=== PATIENT | male | born 1995 | race Caucasian/White ===

== ENCOUNTER → 2018-08-20 | Outpatient (CLI) | payer OTHER, BC ==
[2018-08-22 07:12] LABS: HIV SCREEN 4TH GENERATION WRFX Non Reactive (Non Reactive)
== END | disposition home or self-care (01) ==
LOC: LAB SHORT 16:38 → LAB EV 16:38
PROVIDERS: Family Medicine
DX: Z20.9 Contact with and (suspected) exposure to unspecified communicable disease (principal)
CPT/HCPCS: 87389

== ENCOUNTER → 2018-11-06 | Outpatient (CLI) | payer OTHER, BC ==
[2018-11-07 12:07] LABS: HIV SCREEN 4TH GENERATION WRFX Non Reactive (Non Reactive)
== END ==
LOC: LAB SHORT 12:49 → LAB EV 12:49
PROVIDERS: General Practice
DX: Z20.9 Contact with and (suspected) exposure to unspecified communicable disease (principal)
CPT/HCPCS: 87389

== ENCOUNTER 2019-12-13 03:06 | Emergency (ER) | payer BC ==
[~2019-12-13] VITALS: Ht 185.4 cm; Wt 140.6 kg
[2019-12-13] MEDS ORDERED: CYCL10 (03:52)
[2019-12-13 05:16] LABS: BASOPHILS ABSOLUTE AUTO 0.04 K/mm3 (0.00-0.23); BASOPHILS PERCENT AUTO 0 % (0-2); EOSINOPHILS ABSOLUTE AUTO 0.08 K/mm3 (0.00-0.68); EOSINOPHILS PERCENT AUTO 1 % (0-6); Hematocrit 48.1 % (37.0-53.0); Hemoglobin 15.4 g/dL (13.5-17.5); IMMATURE GRAN PERCENT AUTO 1 % (0-1); LYMPHOCYTES ABSOLUTE AUTO 2.78 K/mm3 (0.84-5.20); LYMPHOCYTES PERCENT AUTO 27 % (21-46); MONOCYTES ABSOLUTE AUTO 0.55 K/mm3 (0.16-1.47); MONOCYTES PERCENT AUTO 5 % (4-13); Mean Corpuscular HGB 27.1 pg (26.0-34.0); Mean Corpuscular Volume 85 fL (80-100); NEUTROPHILS ABSOLUTE AUTO 6.91 K/mm3 (1.96-9.15); NEUTROPHILS PERCENT AUTO 66 % (41-73); Platelet Count 262 K/mm3 (150-400); RDW Coefficient Variation 12.8 % (11.7-14.2); Red Blood Cell Count 5.69 M/mm3 (4.30-5.90); White Blood Cell Count 10.46 K/mm3 (4.00-11.30)
[2019-12-13 05:17] LABS: Source, Urine Clean Catch
[2019-12-13 05:22] LABS: Appearance, Urine Clear (Clear); Bilirubin, Urine Neg (Neg); Blood, Urine 1+ (Neg); Color, Urine Yellow (P-Yellow); Glucose Qualitative, Urine Neg (Neg); Ketones, Urine Neg (Neg); Leukocyte Esterase, Urine Neg (Neg); Nitrite, Urine Neg (Neg); Protein, Urine Neg (Neg); Specific Gravity, Urine 1.025 (1.003-1.022); Urobilinogen, Urine NORM (Normal)
[2019-12-13 05:28] LABS: Alanine Aminotransfer (ALT/SGP 61 U/L (12-78); Albumin, Blood 3.8 g/dL (3.4-5.0); Alk Phos 56 U/L (50-136); Anion Gap 7 mmol/L (6-16); Aspartate Aminotrans (AST/SGOT 27 U/L (12-37); Bilirubin, Total 0.3 mg/dL (0.1-1.0); Blood Urea Nitrogen 12 mg/dL (8-24); Bun/Creatinine Ratio 11.5 (12.0-20.0); CO2, Blood 28 mmol/L (21-32); Calcium, Blood 8.9 mg/dL (8.5-10.1); Chloride, Blood 109 mmol/L (98-108); Creatinine, Blood 1.04 mg/dL (0.60-1.20); Globulin, Blood 3.8 g/dL (2.2-4.0); Glomerular Filtration Rate >60 (60-); Glucose, Blood 112 mg/dL (70-99); Sodium, Blood 144 mmol/L (136-145); Total Protein, Blood 7.6 g/dL (6.4-8.2)
[2019-12-13 05:30] LABS: Bacteria Not Seen /hpf; Mucus Light (0-Heavy); Red Blood Cells, Urine 0-2 /hpf (0-2); Squamous Epithelial Cells Not Seen /hpf (Few); White Blood Cells, Urine 0-2 /hpf (0-5)
[2019-12-13 05:31] LABS: Calcium Oxalate Crystals Rare /hpf
[2019-12-13] MEDS ORDERED: Flomax0.4 MG PO (06:33)
[2019-12-13] MEDS ORDERED: Norco 5-325 Ta1 EACH PO (06:33)
== END 2019-12-13 06:59 | disposition home or self-care (01) ==
LOC: ER 03:06
PROVIDERS: Emergency Medicine
DX: N13.2 Hydronephrosis with renal and ureteral calculous obstruction (principal); Z87.891 Personal history of nicotine dependence
CPT/HCPCS: 74176; 80053; 81001; 83690; 85025; 96361; 96374; 96375; 99284-25; J1885; J2405; J7030

== ENCOUNTER 2021-09-06 20:55 | Emergency (ER) | payer BC ==
[~2021-09-06] VITALS: Ht 182.9 cm; Wt 140.6 kg
[~2021-09-06 20:55] MED LIST: CYCL10; Flomax0.4 MG PO; Norco 5-325 Ta1 EACH PO
[2021-09-06 21:26] LABS: BASOPHILS ABSOLUTE AUTO 0.05 K/mm3 (0.00-0.23); BASOPHILS PERCENT AUTO 0 % (0-2); EOSINOPHILS PERCENT AUTO 0 % (0-6); Hematocrit 49.5 % (37.0-53.0); Hemoglobin 16.7 g/dL (13.5-17.5); IMMATURE GRAN ABSOLUTE AUTO 0.08 K/mm3 (0.00-0.10); IMMATURE GRAN PERCENT AUTO 1 % (0-1); LYMPHOCYTES ABSOLUTE AUTO 1.35 K/mm3 (0.84-5.20); LYMPHOCYTES PERCENT AUTO 10 % (21-46); MONOCYTES ABSOLUTE AUTO 0.39 K/mm3 (0.16-1.47); MONOCYTES PERCENT AUTO 3 % (4-13); Mean Corpuscular HGB 27.6 pg (26.0-34.0); Mean Corpuscular HGB Conc 33.7 g/dL (31.5-36.5); Mean Corpuscular Volume 82 fL (80-100); Mean Platelet Volume 11.8 fL (9.1-12.4); NEUTROPHILS PERCENT AUTO 86 % (41-73); Platelet Count 280 K/mm3 (150-400); RDW Standard Deviation 38.6 fL (35.1-46.3); Red Blood Cell Count 6.06 M/mm3 (4.30-5.90); White Blood Cell Count 13.67 K/mm3 (4.00-11.30)
[2021-09-06 21:45] LABS: Alanine Aminotransfer (ALT/SGP 30 U/L (12-78); Albumin, Blood 3.9 g/dL (3.4-5.0); Albumin/Globulin Ratio 0.9 (0.8-1.8); Alk Phos 72 U/L (50-136); Anion Gap 8 mmol/L (6-16); Aspartate Aminotrans (AST/SGOT 13 U/L (12-37); Bilirubin, Total 0.6 mg/dL (0.1-1.0); Blood Urea Nitrogen 12 mg/dL (8-24); Bun/Creatinine Ratio 14.8 (12.0-20.0); CO2, Blood 23 mmol/L (21-32); Calcium, Blood 9.4 mg/dL (8.5-10.1); Chloride, Blood 109 mmol/L (98-108); Creatinine, Blood 0.81 mg/dL (0.60-1.20); Globulin, Blood 4.4 g/dL (2.2-4.0); Glomerular Filtration Rate >60 (60-); Glucose, Blood 126 mg/dL (70-99); Potassium, Blood 3.4 mmol/L (3.5-5.5); Sodium, Blood 140 mmol/L (136-145); Total Protein, Blood 8.3 g/dL (6.4-8.2)
[2021-09-06 23:24] LABS: Source, Urine Clean Catch
[2021-09-06 23:26] LABS: Bilirubin, Urine Neg (Neg); Blood, Urine Neg (Neg); Glucose Qualitative, Urine Neg (Neg); Ketones, Urine 4+ (Neg); Leukocyte Esterase, Urine 1+ (Neg); Nitrite, Urine Neg (Neg); Protein, Urine 2+ (Neg); Urobilinogen, Urine NORM (Normal)
[2021-09-06 23:27] LABS: Appearance, Urine Clear (Clear); Color, Urine Yellow (P-Yellow)
[2021-09-06 23:32] LABS: Amorphous Light (0-Heavy); Bacteria Rare /hpf; Mucus Mod (0-Heavy); Red Blood Cells, Urine Not Seen /hpf (0-2); Squamous Epithelial Cells Not Seen /hpf (Few); White Blood Cells, Urine Rare /hpf (0-5)
== END 2021-09-07 01:34 | disposition home or self-care (01) ==
LOC: ER 20:55
PROVIDERS: Physician Assistant
DX: A08.39 Other viral enteritis (principal); Z87.891 Personal history of nicotine dependence; Z87.442 Personal history of urinary calculi
CPT/HCPCS: 36415; 74177; 76705; 80053; 81001; 83690; 85025; 96374; 96375; 99285-25; A9270; J1170; J1885; J2405; J3010; J7030; Q9967

== ENCOUNTER 2023-08-01 18:12 | Emergency (ER) | payer BC ==
[~2023-08-01] VITALS: Ht 182.9 cm; Wt 97.5 kg
[2023-08-01 19:02] LABS: BASOPHILS ABSOLUTE AUTO 0.03 K/mm3 (0.00-0.23); BASOPHILS PERCENT AUTO 0 % (0-2); EOSINOPHILS ABSOLUTE AUTO 0.01 K/mm3 (0.00-0.68); EOSINOPHILS PERCENT AUTO 0 % (0-6); Hematocrit 44.5 % (37.0-53.0); Hemoglobin 15.2 g/dL (13.5-17.5); IMMATURE GRAN ABSOLUTE AUTO 0.06 K/mm3 (0.00-0.10); IMMATURE GRAN PERCENT AUTO 1 % (0-1); LYMPHOCYTES ABSOLUTE AUTO 1.59 K/mm3 (0.84-5.20); LYMPHOCYTES PERCENT AUTO 12 % (21-46); MONOCYTES PERCENT AUTO 2 % (4-13); Mean Corpuscular HGB 28.6 pg (26.0-34.0); Mean Corpuscular HGB Conc 34.2 g/dL (31.5-36.5); Mean Corpuscular Volume 84 fL (80-100); NEUTROPHILS ABSOLUTE AUTO 10.94 K/mm3 (1.96-9.15); NEUTROPHILS PERCENT AUTO 85 % (41-73); Platelet Count 273 K/mm3 (150-400); RDW Coefficient Variation 13.3 % (11.7-14.2); RDW Standard Deviation 40.4 fL (35.1-46.3); Red Blood Cell Count 5.32 M/mm3 (4.30-5.90); White Blood Cell Count 12.93 K/mm3 (4.00-11.30)
[2023-08-01 19:29] LABS: Albumin, Blood 4.2 g/dL (3.4-5.0); Albumin/Globulin Ratio 1.1 (0.8-1.8); Bilirubin, Total 0.6 mg/dL (0.1-1.0); Bun/Creatinine Ratio 15.6 (12.0-20.0); Calcium, Blood 9.3 mg/dL (8.5-10.1); Creatinine, Blood 0.9 mg/dL (0.60-1.20); Globulin, Blood 3.8 g/dL (2.2-4.0); Potassium, Blood 4.2 mmol/L (3.5-5.5)
[2023-08-01] MEDS ORDERED: Atarax10 MG (20:49)
[2023-08-01] MEDS ORDERED: ADDERALL XR 1515 MG (20:49)
[2023-08-01] MEDS ORDERED: Adderall 5mg tab5 MG (20:49)
[2023-08-01] MEDS ORDERED: CATAPRES0.1 MG (20:50)
[2023-08-01] MEDS ORDERED: OXYACE7.5T PO (23:20)
[2023-08-01] MEDS ORDERED: ONDA4ODT MM (23:21)
[2023-08-01 23:38] VITALS: BP 137/86
== END 2023-08-01 23:38 | disposition home or self-care (01) ==
LOC: ER 18:12
PROVIDERS: Physician Assistant
DX: K80.50 Calculus of bile duct without cholangitis or cholecystitis without obstruction (principal); Z79.899 Other long term (current) drug therapy; Z87.891 Personal history of nicotine dependence
CPT/HCPCS: 76705; 80053; 83690; 84484; 85025; 93005; 93010; 96374; 96375; 99284-25; A9270; J0780; J1170; J2405; J3010

== ENCOUNTER 2024-08-02 14:26 | Emergency (ER) | payer BC ==
[~2024-08-02] VITALS: Ht 182.9 cm; Wt 89.8 kg
[~2024-08-02 14:26] MED LIST changes: +ADDERALL XR 1515 MG; +Adderall 5mg tab5 MG; +Atarax10 MG; +CATAPRES0.1 MG; +ONDA4ODT MM; +OXYACE7.5T PO
[2024-08-02] MEDS ORDERED: Ondansetron HCl 2 MG / ML 2ML Vial IV ONE ×2 (15:20→16:30)
[2024-08-02 15:27] LABS: BASOPHILS ABSOLUTE AUTO 0.08 K/mm3 (0.00-0.23); BASOPHILS PERCENT AUTO 1 % (0-2); EOSINOPHILS ABSOLUTE AUTO 0.01 K/mm3 (0.00-0.68); EOSINOPHILS PERCENT AUTO 0 % (0-6); Hematocrit 49.8 % (37.0-53.0); Hemoglobin 16.6 g/dL (13.5-17.5); IMMATURE GRAN ABSOLUTE AUTO 0.11 K/mm3 (0.00-0.10); IMMATURE GRAN PERCENT AUTO 1 % (0-1); LYMPHOCYTES ABSOLUTE AUTO 1.76 K/mm3 (0.84-5.20); LYMPHOCYTES PERCENT AUTO 12 % (21-46); MONOCYTES ABSOLUTE AUTO 0.54 K/mm3 (0.16-1.47); MONOCYTES PERCENT AUTO 4 % (4-13); Mean Corpuscular HGB 27.4 pg (26.0-34.0); Mean Corpuscular HGB Conc 33.3 g/dL (31.5-36.5); Mean Corpuscular Volume 82 fL (80-100); Mean Platelet Volume 10.5 fL (9.1-12.4); NEUTROPHILS ABSOLUTE AUTO 12.48 K/mm3 (1.96-9.15); NEUTROPHILS PERCENT AUTO 83 % (41-73); Platelet Count 294 K/mm3 (150-400); RDW Coefficient Variation 12.3 % (11.7-14.2); Red Blood Cell Count 6.05 M/mm3 (4.30-5.90); White Blood Cell Count 14.98 K/mm3 (4.00-11.30)
[2024-08-02 15:52] LABS: Albumin, Blood 4.1 g/dL (3.4-5.0); Albumin/Globulin Ratio 1.1 (0.8-1.8); Bilirubin, Total 0.6 mg/dL (0.1-1.0); Bun/Creatinine Ratio 21.3 (12.0-20.0); Calcium, Blood 9.4 mg/dL (8.5-10.1); Creatinine, Blood 0.8 mg/dL (0.60-1.20); Globulin, Blood 3.9 g/dL (2.2-4.0); Potassium, Blood 3.3 mmol/L (3.5-5.5)
[2024-08-02] MEDS ORDERED: CLOMIPRAMINE HC25 M2 PO (15:53)
[2024-08-02] MEDS ORDERED: LISDEXAMFETAMIN60 MG PO (15:53)
[2024-08-02] MEDS ORDERED: Morphine Sulfate 4 MG/1 ML Injection IV ONE ×2 (16:30→17:45)
[2024-08-02] MEDS ORDERED: NS 1,000 ML IV SCH (16:30)
[2024-08-02 17:46] LABS: Source, Urine Clean Catch
[2024-08-02 17:51] LABS: Appearance, Urine Clear (Clear); Bilirubin, Urine Neg (Neg); Blood, Urine Neg (Neg); Color, Urine Yellow (P-Yellow); Glucose Qualitative, Urine Neg (Neg); Ketones, Urine Neg (Neg); Leukocyte Esterase, Urine Neg (Neg); Nitrite, Urine Neg (Neg); Protein, Urine 1+ (Neg); Urobilinogen, Urine NORM (Normal)
[2024-08-02 17:58] VITALS: BP 147/92
[2024-08-02] MEDS ORDERED: DICY20 PO (18:36)
[2024-08-02] MEDS ORDERED: Ketorolac Tromethamine 30mg Vial IV ONE (18:40)
== END 2024-08-02 19:01 | disposition home or self-care (01) ==
LOC: ER 14:26
PROVIDERS: Emergency Medicine; Student in an Organized Health Care Education/Training Program
DX: K59.00 Constipation, unspecified (principal); R10.31 Right lower quadrant pain; Z87.891 Personal history of nicotine dependence; Z79.899 Other long term (current) drug therapy
CPT/HCPCS: 74177; 80053; 83690; 85025; J1885; J2270; J2405; J7030; Q9967

== ENCOUNTER 2024-11-12 18:27 | Emergency (ER) | payer BC ==
[~2024-11-12] VITALS: Ht 185.4 cm; Wt 95.2 kg
[~2024-11-12 18:27] MED LIST changes: +CLOMIPRAMINE HC25 M2 PO; +DICY20 PO; +LISDEXAMFETAMIN60 MG PO
[2024-11-12 18:35] VITALS: BP 140/101
[2024-11-12] MEDS ORDERED: Ondansetron HCl 2 MG / ML 2ML Vial IV ONE (18:45)
[2024-11-12 19:32] LABS: BASOPHILS ABSOLUTE AUTO 0.05 K/mm3 (0.00-0.23); BASOPHILS PERCENT AUTO 0 % (0-2); EOSINOPHILS PERCENT AUTO 0 % (0-6); Hematocrit 51.8 % (37.0-53.0); Hemoglobin 17.7 g/dL (13.5-17.5); IMMATURE GRAN ABSOLUTE AUTO 0.09 K/mm3 (0.00-0.10); IMMATURE GRAN PERCENT AUTO 1 % (0-1); LYMPHOCYTES ABSOLUTE AUTO 1.07 K/mm3 (0.84-5.20); LYMPHOCYTES PERCENT AUTO 7 % (21-46); MONOCYTES ABSOLUTE AUTO 0.35 K/mm3 (0.16-1.47); MONOCYTES PERCENT AUTO 2 % (4-13); Mean Corpuscular HGB Conc 34.2 g/dL (31.5-36.5); Mean Corpuscular Volume 82 fL (80-100); Mean Platelet Volume 10.5 fL (9.1-12.4); NEUTROPHILS ABSOLUTE AUTO 14.33 K/mm3 (1.96-9.15); NEUTROPHILS PERCENT AUTO 90 % (41-73); Platelet Count 349 K/mm3 (150-400); RDW Coefficient Variation 12.4 % (11.7-14.2); RDW Standard Deviation 37.2 fL (35.1-46.3); Red Blood Cell Count 6.32 M/mm3 (4.30-5.90); White Blood Cell Count 15.89 K/mm3 (4.00-11.30)
[2024-11-12 19:49] LABS: Albumin, Blood 4.7 g/dL (3.4-5.0); Bilirubin, Total 0.8 mg/dL (0.1-1.0); Bun/Creatinine Ratio 21.1 (12.0-20.0); Calcium, Blood 10.6 mg/dL (8.5-10.1); Creatinine, Blood 0.9 mg/dL (0.60-1.20); Globulin, Blood 4.5 g/dL (2.2-4.0); Potassium, Blood 4.4 mmol/L (3.5-5.5); Total Protein, Blood 9.2 g/dL (6.4-8.2)
[2024-11-12] MEDS ORDERED: Ketorolac Tromethamine 30mg Vial IV ONE (23:55)
[2024-11-12] MEDS ORDERED: Haloperidol Lactate Inj. 5 MG/ML Injection IM ONE (23:55)
[2024-11-12] MEDS ORDERED: NS 1,000 ML IV SCH (23:55)
[2024-11-13 00:19] LABS: Magnesium, Blood 2.2 mg/dL (1.6-2.4)
[2024-11-13] MEDS ORDERED: Ondansetron Odt8 MG MM (00:38)
== END 2024-11-13 00:30 | disposition home or self-care (01) ==
LOC: ER 18:27
PROVIDERS: Student in an Organized Health Care Education/Training Program
DX: R11.2 Nausea with vomiting, unspecified (principal); R19.7 Diarrhea, unspecified; E86.0 Dehydration; Z87.891 Personal history of nicotine dependence
CPT/HCPCS: 80053; 83690; 83735; 85025; 96361; 96372-59; 96374; 99284; J1630; J1885; J7030

== ENCOUNTER 2024-12-07 10:54 | Day surgery (SDC) | payer BC ==
[~2024-12-07] VITALS: Ht 185.4 cm; Wt 89.0 kg
[~2024-12-07 10:54] MED LIST changes: +Atropine Sulfate 0.1 MG/ML 10ML SYR ONE; +Glycopyrrolate 0.2 MG/ML 1MLVIAL ONE; +Lactated Ringer's 1,000 ML IV ONE; +Lidocaine 2% 5 ML SDV ONE; +Lidocaine HCl/Pf 1% 5 ML VIAL ONE; +Ondansetron HCl 2 MG / ML 2ML Vial ONE; +Ondansetron Odt8 MG MM; +ePHEDrine Sulfate 50 MG/ML 1ML Injection ONE; +propofoL 50 ML IV ONE
[2024-12-07] MEDS ORDERED: CATAPRES-TTS 11 EAC1 (11:32)
[2024-12-07] MEDS ORDERED: LISDEXAMFETAMINE (11:33)
[2024-12-07] MEDS ORDERED: OMEP20ER (11:33)
[2024-12-07] MEDS ORDERED: Lactated Ringer's 1,000 ML IV ONE (12:38)
--- NOTE | 2024-12-07 12:41 | NUR ---
12/07/24 1241 Yudy Pereira PT. VERBALIZES HAVING A SORE THROAT BECAUSE OF HAVING A CANKER SORE RATING A "5".
[2024-12-07 13:30] VITALS: BP 105/62
== END 2024-12-07 13:31 | disposition home or self-care (01) ==
LOC: ORSCSDS 10:54
PROVIDERS: Internal Medicine Gastroenterology
PROC: 0DJ08ZZ Inspection of Upper Intestinal Tract, Via Natural or Artificial Opening Endoscopic (ICD-10-PCS; principal; 2024-12-07 12:30)
DX: R10.13 Epigastric pain (principal); R11.2 Nausea with vomiting, unspecified; R63.4 Abnormal weight loss; Z79.899 Other long term (current) drug therapy
CPT/HCPCS: J0461; J2003; J2405; J2704; J7120